=== PATIENT | male | born 1985 | race Caucasian/White ===

== ENCOUNTER 2020-07-08 23:45 | Emergency (ER) | payer SELFPAY ==
[2020-07-08 23:46] VITALS: BP 156/93; PULSE 84; RESP 16; TEMP 35.7; O2SAT 99; BMI 27.3
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
[2020-07-09 01:23] VITALS: BP 120/72; PULSE 82; RESP 18; O2SAT 98
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
--- NOTE | 2020-07-09 03:52 | ED.RN ---
PT HAS TALKED TO SEVERAL PEOPLE VIA PERSONAL PHONE. PT HAS AMBULATED TO BATHROOM WITH A STEADY AND INDEPENDENT GAIT. PT STATES HIS UNCLE CAN PICK HIM UP AT 0700.
== END 2020-07-09 05:46 | disposition home or self-care (01) ==
PROVIDERS: Emergency Provider Emergency Medicine
DX: S01.512A Laceration without foreign body of oral cavity, initial encounter (principal); S09.90XA Unspecified injury of head, initial encounter; V89.0XXA Person injured in unspecified motor-vehicle accident, nontraffic, initial encounter
CPT/HCPCS: 70450; 70486; 99283